=== PATIENT | female | born 1960 | race Caucasian/White ===

== ENCOUNTER 2019-07-12 09:15 | Inpatient (IN) ==
[~2019-07-12 09:15] MED LIST: Vancomycin 1,000 MG, Sodium Chloride IRRigation 1,000 ML IR ONE
[2019-07-12] MEDS ORDERED: Albuterol 2.5 MG/3 ML NEBULIZER IH ONE ×2 (09:34→09:54)
[2019-07-12] MEDS ORDERED: CeFAZolin Syr 2,000MG/20 ML 2,000 MG/20 ML SYRINGE IVPB ONE (09:34)
--- NOTE | 2019-07-12 09:41 | Anesthesia Evaluation PreOp ---
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), Other (Hx craniotomy x 3 for 5 aneurysm repair/clipping) Other Medical History: Denies Any Significant HX Anesthesia History: No Prior Anesthetic Complications, Past Anesthesia (left forearms, left hand, iliac stent L, caniotomy x 3) : No Alcohol Use: none Drug use: none Medications and Allergies Clopidogrel [Plavix] 75 mg PO DAILY #30 tablet 09/12/15 [Rx] Albuterol Sulfate [Ventolin Hfa] 18 gm IH Q4H PRN 08/03/17 [History] HYDROcodone/Acet 5/325 mg [[place] 5-325 mg] 1 tab PO Q4HR PRN #10 tablet 08/03/17 [Rx] Allergy/AdvReac Type Severity Reaction Status Date / Time Iodinated Contrast Media Allergy Hives Verified 07/12/19 09:37 acetaminophen [From Percocet] AdvReac Nausea Verified 07/12/19 09:37 oxycodone [From Percocet] AdvReac Nausea Verified 07/12/19 09:37 - Meds/Allergy Pre-op Review Medications Reviewed: Yes Allergies Reviewed: Yes Beta Blockers on Current Med List: No Anesthesia Results - Labs Laboratory Tests 07/05/19 07/05/19 07/05/19 11:49 11:49 11:49 WBC 7.0 Hgb 14.2 Hct 44.1 Plt Count 259 PT 9.5 INR 0.8 APTT 27.4 Sodium 138 Potassium 4.1 Chloride 106 Carbon Dioxide 27 BUN 14 Creatinine 0.87 Est GFR (Non-Af Amer) > 60 - Imaging EKG: report reviewed (SINUS RHYTHM WITH SINUS ARRHYTHMIA POSSIBLE RIGHT VENT RICULAR CONDUCTION DELAY NONSPECIFIC T-WAVE ABNORMALITY) Additional studies: stress 07/2015 Impression: Pharmacologic stress ECG is negative for ischemia at level of heart rate achieved. Patient described chest discomfort during stress. This is a nonspecific finding with Lexiscan. Gated EF > 70%. This study was negative for ischemia or infarct. 05/2019 CT/CT angio aorta w con runoff IMPRESSION: 1. New complete occlusion of a right common iliac artery stent in comparison to 08/25/2015. Flow is reconstituted at the origin of the right external iliac artery. 2. A left common iliac artery stent is now patent. 3. No evidence of a hemodynamically significant stenosis in the arteries of the lower extremities, with three-vessel runoff bilaterally. Anesthesia Exam Vital Signs/O2 Sat/Glucose, Most Recent Temp Pulse Resp BP Pulse Ox 97.8 F 87 18 162/66 97 07/12/19 09:31 07/12/19 09:31 07/12/19 09:31 07/12/19 09:31 07/12/19 09:31 Weight: 84 kg NPO (# of Hours): > 8 hr - HEENT Pupil (Motor): Pupils equal Mallampati: II Teeth: Poor dentition Oral Opening: Greater than 3 - [employer] LOC: Oriented - Cardiac Rhythm: Regular Murmur: None - Pulmonary Breath Sounds: bilateral Clear Respiratory Effort: Symmetrical Anesthesia Assess/Plan ASA Score: 3 Level of consciousness: Cooperative, Oriented Anesthetic Plan: General Monitoring Plan: Standard Monitors, A-Line Recovery Plan: PACU
[2019-07-12] MEDS ORDERED: Ringers Solution, Lactated 1,000 ML IVC SCH (09:45)
[2019-07-12] MEDS ORDERED: Famotidine 20 MG/2 ML VIAL IVP ONE (09:54)
[2019-07-12] MEDS ORDERED: *HR* HYDROmorphone (PF) 1 MG/ML SYRINGE IVP PRN (09:54)
[2019-07-12] MEDS ORDERED: Acetaminophen IV 1,000 MG/100 ML INFUS..BTL IVPB ONE (09:54)
[2019-07-12] MEDS ORDERED: Ondansetron 4 MG/2 ML VIAL IVP ONE (09:54)
[2019-07-12] MEDS ORDERED: *HR* Promethazine 25 MG/ML VIAL IVP PRN (09:54)
[2019-07-12] MEDS ORDERED: *HR* Labetalol 20 MG/4 ML SYRINGE IVP PRN ×2 (09:54→17:26)
[2019-07-12] MEDS ORDERED: Lidocaine -MPF 2% 2 ML VIAL ONE ×2 (10:10→11:30)
[2019-07-12] MEDS ORDERED: *HR* FentaNYL (PF) 100 MCG/2 ML VIAL ONE ×3 (10:11→13:21)
[2019-07-12] MEDS ORDERED: *HR* Propofol 200 MG/20 ML VIAL IVP ONE (10:16)
[2019-07-12] MEDS ORDERED: *HR* Succinylcholine 200 MG/10 ML VIAL IVP ONE (10:17)
[2019-07-12] MEDS ORDERED: Lidocaine HCL 4 ML Topical Solution (Laryng-O-Jet Kit Sterile Pak) TP ONE (10:26)
[2019-07-12] MEDS ORDERED: *HR* Heparin 5,000 UNIT/ML VIAL ONE ×2 (10:27→13:56)
[2019-07-12] MEDS ORDERED: Ondansetron 4 MG/2 ML VIAL ONE (10:33)
[2019-07-12] MEDS ORDERED: Heparin 1,000 UNITS/500 mL 0 ML ONE (11:03)
--- NOTE | 2019-07-12 11:11 | History & Physical Report ---
Date of Encounter: 07/12/19 Time of Encounter: 10:55 24 Hour HP Update - Instructions Instructions: If the History and Physical is less than 30 days old and was completed prior to A.M. admission and or procedure and has NOT been updated on calendar day of procedure please complete this update prior to performing procedure. - Update Patient reports changes in Medical Condition: No Changes in examination, assessment, or condition: No Changes in Medication: No Preop tests/diagnostics Reviewed: Yes Surgery Remains Indicated: Yes Consent for Planned Operative Procedure(s) Verified: Yes - Pre-Operative Checklist Preoperative Checklist Indicated: Yes Prophylactic Antibiotic Ordered: Yes (vancomycin due to MRSA risk) Home Medications Include Beta Lita: No Beta Lita Taken Today (Day of Surgery): No Beta Lita Taken Yesterday (Day Prior to Surgery): No Is VTE Prophylaxis Indicated?: Yes
[2019-07-12] MEDS ORDERED: Heparin 1,000 UNITS/500 mL 1,000 ML ONE (11:14)
[2019-07-12] MEDS ORDERED: *HR* Phenylephrine 10 MG/ML VIAL ONE (11:23)
[2019-07-12] MEDS ORDERED: EPHEDrine 50 MG/ML VIAL ONE (11:34)
--- NOTE | 2019-07-12 11:55 | Anesthesia Procedures ---
Date of Encounter: 07/12/19 Time of Encounter: 11:45 Procedures: Anesthesia - Arterial Line Consent obtained: written consent Time out performed: Yes Sedation: Versed (mg): 2 Sedation: Fentanyl (mcg): 50 Supplemental Oxygen via Nasal Cannula (L/min): 2 Local Anesthetic: Lidocaine 1% Amount of Anesthetic used (mls): 0.5 Size (Gauge): 20 Length (inches): 1 3/4 Technique Used: sterile prep, guide wire technique, direct puncture technique Post-Procedure: line taped into place Patient tolerated procedure: well Complications: none Site: Radial L Vitals: see nurses notes for vitals, patient tolerated well, vs stable throughout Comments: procedure by sridevi brown
[2019-07-12] MEDS ORDERED: *HR* Rocuronium Bromide 50 MG/5 ML VIAL ONE (12:18)
[2019-07-12] MEDS ORDERED: Dexamethasone 4 MG/ML VIAL ONE (12:38)
[2019-07-12] MEDS ORDERED: Calcium Gluconate 1,000 MG/10 ML VIAL ONE (12:41)
[2019-07-12] MEDS ORDERED: *HR* HYDROMORPHONE 2 MG/ML VIAL ONE (15:16)
--- NOTE | 2019-07-12 16:05 | Operative Note ---
Date of procedure: 07/12/19 Pre-op diagnosis: Peripheral vascular disease with disabling claudication Post-op diagnosis: same Procedure: 1. Left common femoral to right common femoral artery bypass. 2. Left iliofemoral endarterectomy. Complications: None Anesthesia: BJ Surgeon: Sheldon Navarrete Was there an personal assistant present: No Estimated blood loss (cc): 50 Specimen: None Condition: stable Disposition: PACU Procedure in Detail: Indications: The patient is a 59-year-old male with a history of COPD, tobacco abuse and peripheral vascular disease. Patient presented with peripheral vascular disease with disabling claudication. She is found have a right iliac artery occlusion. Revascularization was recommended to reduce her symptoms. Procedure: The patient was identified in the preoperative area. The risks, benefits, and alternatives of the procedure were discussed. All questions were answered. The patient was taken to the operating room and placed in supine position on the operating room table. After the induction of general end otracheal anesthesia, he was cleaned and draped in normal sterile fashion. An oblique incision was made over the right groin sharply. Hemostasis was obtained with electrocautery. Through a process of blunt, sharp, and electrocautery dissection, the right femoral vessels were dissected circumferentially and surrounded with vessel loops. An oblique incision was then made over the left groin sharply. Hemostasis was obtained with electrocautery. Through a process of blunt, sharp, and electrocautery dissection, the left femoral vessels were dissected circumferentially and surrounded with vessel loops. A graft was tunneled between the right and left femoral incisions. The patient received 5000 units of heparin intravenously. After waiting adequate time for the heparin to circulate, a longitudinal arteriotomy was made in the left common femoral artery. Significant atherosclerotic plaque was noted to be partially obstructing the lumen. This extended proximally into the external iliac artery. Using a dental freer, an iliofemoral endarterectomy was then performed. Strong pulsatile flow was noted upon completion of the endarterectomy. There were no elevated flaps. The graft was cut to fit the left femoral arteriotomy. The graft was sutured in place with a running 6-0 Prolene. The vessels were flushed through the graft. Heparinized saline was infused into the graft lumen. The graft was clamped with an atraumatic clamp. Flow was restored in the left femoral vessels. Tension was applied to the right femoral artery vessel loops. An arteriotomy was made in the right common femoral artery and the graft was cut to fit the defect. The graft was anastamosed with a running 6-0 Prolene. Prior to completing the anastamosis, the right femoral vessels were flushed through the graft anastamosis and heparin was infused into the lumen. The anastamosis was completed and flow was restored in the right lower extremity. Thrombin and gelfoam were used at the right femoral anastamosis. Polyphasic signals were noted distal to the anastamoses. The wounds were irrigated with antibiotic-containing saline. Platelet rich and platelet poor plasma were infused into the wounds. Meticulous hemostasis was obtained throughout the wound with electrocautery. Wounds were reapproximated with layers of 2-0 and 3-0 Vicryl. Skin was reapproximated with 3-0 Monocryl. Sterile dressing was applied. The patient was extubated and taken to recovery room in stable condition.
--- NOTE | 2019-07-12 16:52 | Anesthesia Evaluation Post Op ---
Date of Encounter: 07/12/19 Time of Encounter: 16:45 - Vital Signs Vital Signs: Vital Signs Temp Pulse Resp BP Pulse Ox 07/12/19 16:44 98.7 F 85 12 120/56 92 07/12/19 16:34 87 12 121/51 93 07/12/19 16:24 78 12 128/53 93 07/12/19 16:14 98.6 F 91 10 133/50 98 07/12/19 11:45 97 07/12/19 11:43 86 18 180/86 93 07/12/19 11:40 80 24 174/105 96 07/12/19 09:48 97.8 F 87 18 162/66 97 07/12/19 09:31 97.8 F 87 18 162/66 97 Intake and Output 07/12/19 07/12/19 07/12/19 07:59 15:59 23:59 Intake Total 270 / 270 Output Total 200 / 200 Balance 270 / 70 -200 / 70 Intake: IV Fluids 270 / 270 Ancef Syringe 2,000 MG/20 ML 2, 20 / 20 000 mg In 20 ml @ 200 mls/hr IVPB PREOP ONE Rx#:[id number] Vancocin 1,250 MG In 0.9 % 250 / 250 Sodium Chloride 250 ML @ 167 mls/hr IVPB ONCE ONE Rx#: [id number] Output: Estimated Blood Loss 50 / 50 Urine Amount (Catheter) 150 / 150 Other: Weight 84.368 kg Patient Weight 07/12/19 23:59 Weight 84.368 kg - Lungs Lungs: Clear Ascult./Percussion - Airway Airway: Non-obstructed - Cardiovascular Regular Rate, Baseline Rhythm - Mental Status Mental Status: Alert & Oriented, Answers Appropriately - Pain Pain Scale: 0 Pain Scale used: Numeric (1 - 10) - Nausea Vomiting Nausea Vomiting: Not Present - Hydration Hydration: Tolerates oral liquids, Davies catheter - Discharge PostOp Status: Transfer Patient to floor Anes Supervising Prov Stmt: PT seen/evaluated, VSS and has met criteria for discharge to floor. - MD Dusty
[2019-07-12] MEDS ORDERED: Naloxone 0.4 MG/ML INJ IVP PRN (17:26)
[2019-07-12] MEDS ORDERED: *HR* OxyCODONE Immed Rel 5 MG TABLET PO PRN ×2 (17:26)
[2019-07-12] MEDS ORDERED: 0.9 % Sodium Chloride 1,000 ML IVC SCH (17:26)
[2019-07-12] MEDS ORDERED: Acetaminophen 325 MG TABLET PO PRN ×2 (17:26)
[2019-07-12] MEDS ORDERED: Ondansetron 4 MG/2 ML VIAL IVP PRN (17:26)
[2019-07-12] MEDS ORDERED: *HR* HYDROcodone/Acet 5/325 mg TABLET PO PRN ×2 (17:26)
[2019-07-12] MEDS: *HR* Metoprolol 5 MG/5 ML VIAL IVP SCH (17:55)
[2019-07-13] MEDS: *HR* Metoprolol 5 MG/5 ML VIAL IVP SCH ×2 (01:00→05:11)
[2019-07-13 02:10] LABS: Basophils % 0.1 %; Hematocrit 42.5 % (35.3-44.9); Hemoglobin 13.6 g/dL (11.5-15.4); Immature Granulocytes % 0.6 % (0-4); Lymphocytes # 0.7 K/mcL (0.6-4.6); Lymphocytes % 5.2 %; Mean Corpuscular Hemoglobin 29.5 pg (28.0-33.3); Mean Corpuscular Volume 92.2 fL (83.0-100.0); Mean Platelet Volume 9.9 fL (9.4-12.4); Monocytes # 0.3 K/mcL (0.0-1.3); Monocytes % 2.1 %; Neutrophils # 12.9 K/mcL (1.6-8.9); Platelet Count 247 K/mcL (140-400); Red Blood Count 4.61 M/mcL (3.82-4.97); Red Cell Distribution Width 13.6 % (11.5-14.5)
[2019-07-13 02:33] LABS: BUN/Creatinine Ratio 16 (6-26); Blood Urea Nitrogen 14 mg/dL (6-20); Calcium 8.1 mg/dL (8.6-10.3); Carbon Dioxide 21 mEq/L (23-29); Chloride 106 mEq/L (98-107); Glucose 147 mg/dL (70-105); Osmolality,Calculated 287 (280-300); Potassium 4.9 mEq/L (3.5-5.1); Sodium 137 mEq/L (136-145); eGFR For African Americans > 60 (> 60); eGFR For Non-African Americans > 60 (> 60)
[2019-07-13] MEDS ORDERED: *HR* Heparin 5,000 UNIT/ML VIAL SQ SCH ×2 (06:00)
--- NOTE | 2019-07-13 06:51 | Discharge Summary ---
Date of Encounter: 07/13/19 Time of Encounter: 07:40 - Discharge Diagnosis (1) Atherosclerosis of [place] artery of right lower extremity with rest pain Priority: Primary Status: Chronic Comments: The patient is postoperative day #1 after a femoral to femoral artery bypass and left iliofemoral endarterectomy. Wounds appear to be healing. Her feet are warm. Her compartments are soft. She will be discharged today. (2) Tobacco use Priority: Secondary Status: Chronic (3) COPD (chronic obstructive pulmonary disease) Priority: Secondary Status: Chronic Qualifiers: COPD type: emphysema Emphysema type: panlobular Qualified Code(s): J43.1 - Panlobular emphysema - Hospital Course Hospital course: Ms. Weiss is a 59 year old female with a history of COPD and tobacco abuse was found have severe peripheral vascular disease. His a right common iliac artery occlusion. She required a femoral to femoral artery bypass graft and left iliofemoral endarterectomy. She tolerated the procedure well. On postoperative day #1 she was neurovascularly intact. Her incisions were healing. She was hemodynamically stable condition and was discharged home without complications. Time spent discussing smoking cessation with patient: 3 to 10 minutes - Time Spent with Patient Total time spent providing and/or coordinating discharge services: - Discharge Medications Prescriptions: New HYDROcodone/Acet 5/325 mg [[place] 5-325 mg] 1 tab PO Q4H PRN 4 Days #24 tablet PRN Reason: Postoperative pain Continued Albuterol Sulfate [Ventolin Hfa] 2 puff IH Q4H PRN PRN Reason: Wheezing Clopidogrel [Plavix] 75 mg PO DAILY Amitriptyline [Elavil] 25 mg PO HS Home Medications: Albuterol Sulfate [Ventolin Hfa] 2 puff IH Q4H PRN 08/03/17 [History] Amitriptyline [Elavil] 25 mg PO HS 07/12/19 [History] Clopidogrel [Plavix] 75 mg PO DAILY 07/12/19 [History] HYDROcodone/Acet 5/325 mg [[place] 5-325 mg] 1 tab PO Q4H PRN 4 Days #24 tablet 07/13/19 [Rx] Allergies/Adverse Reactions: Allergy/AdvReac Type Severity Reaction Status Date / Time Iodinated Contrast Media Allergy Hives Verified 07/12/19 09:37 acetaminophen [From Percocet] AdvReac Nausea Verified 07/12/19 09:37 oxycodone [From Percocet] AdvReac Nausea Verified 07/12/19 09:37 Date of admission: 07/12/19 17:25 Primary care physician: Mildred Blackwell CNP Procedure(s) Performed: Femoral-femoral artery bypass and left iliofemoral endarterectomy. Discharging clinician: Sheldon Navarrete Anticipated date of discharge: 07/13/19 Exam Vital Signs, Last 4 Hours Temp Pulse Resp BP Pulse Ox 07/13/19 05:38 62 134/60 07/13/19 03:54 97.8 F 82 17 104/55 95 General: Present: Conversant HEENT: Present: Pupils equal Cardiac: Present: Reg Rate and Rhythm Lungs: Present: Normal Breath Sounds Neuro: Present: Alert and responsive, No focal deficits noted Abdomen: Present: Soft, Non-tender Vascular: Present: Normal capillary refill, Surgical incisions (No hematoma, incisions clean, dry and intact), Other (Pedal signals present bilaterally). Absent: Cyanosis, Edema Skin: Present: No rashes noted on visualized skin - Patient Status Disposition: Home, Self-Care Condition: Critical Functional capacity at discharge: independent ambulation Overall status at discharge: patient is back to baseline - Discharge Instructions Instructions: Hydrocodone/Acetaminophen (By mouth) Follow Up With: Mildred Blackwell CNP [Primary Care Provider] - 07/19/19 1:00 pm Sheldon Navarrete MD [Partnered Physician] - 08/14/19 1:20 pm Additional Instructions: May remove bandage and shower on 07/14/2019. Wash wounds gently with soap and water only and pat to dry. Apply dry gauze to wounds daily for 7 days. No tub baths or swimming until 07/24/2019. Call Dr. Navarrete at [phone] with questions or concerns. - Diet and Activity Activity: increase activity as tolerated Diet: advance to your usual diet
[2019-07-13 07:24] VITALS: BP 139/57
== END 2019-07-13 09:15 | disposition home or self-care (01) | DRG 272 ==
LOC: SAMDAY 09:15 → 2NNU 17:25
PROVIDERS: ADMIT Surgery; ATTEND Surgery
PROC: VASFFBG (ICD-10-PCS; 2019-07-12 11:15)